=== PATIENT | male | born 2000 ===

== ENCOUNTER 2020-02-06 10:37 | Emergency (ER) | payer BC ==
[~2020-02-06] VITALS: Ht 177.8 cm; Wt 83.9 kg
--- NOTE | 2020-02-06 10:45 | NUR ---
Dr. Patricia at bedside for MSE
[2020-02-06] MEDS ORDERED: CEphaleXIN 500 MG CAPSULE ONE (10:58)
[2020-02-06] MEDS ORDERED: NEOMY/BACITRA/POLYMYXIN B OINT UD PACKET TP ONE ×2 (11:00→11:22)
[2020-02-06] MEDS ORDERED: CEphaleXIN 500 MG CAPSULE PO ONE (11:00)
[2020-02-06] MEDS ORDERED: LIDOCAINE HCL 2% 20 ML VIAL TP ONE (11:00)
--- NOTE | 2020-02-06 12:03 | NUR ---
Patient discharged to home in stable condition. Written and verbal after care instructions given. Patient verbalizes understanding of instructions. Stressed follow up or return to ER for worsening s/s. No active bleeding noted. Patient ambulated with steady gait. NAD noted
[2020-02-06 12:11] VITALS: BP 122/71
== END 2020-02-06 12:03 | disposition home or self-care (01) ==
LOC: ER 10:37
PROC: 0J9J0ZZ Drainage of Right Hand Subcutaneous Tissue and Fascia, Open Approach (ICD-10-PCS; principal; 2020-02-06)
DX: L03.011 Cellulitis of right finger (principal)
CPT/HCPCS: 73140; A4663; J3490

== ENCOUNTER 2020-02-08 10:25 | Emergency (ER) | payer BC ==
[~2020-02-08] VITALS: Ht 177.8 cm; Wt 83.9 kg
--- NOTE | 2020-02-08 11:33 | NUR ---
PT WAS EVALUATED BY DR CONNORS. PT WAS D/C'd TO HOME. D/C INSTRUCTIONS GIVEN TO THE PT BY DR CONNORS.
[2020-02-08 11:36] VITALS: BP 128/77
== END 2020-02-08 11:37 | disposition home or self-care (01) ==
LOC: ER 10:25
DX: L03.011 Cellulitis of right finger (principal)
CPT/HCPCS: A4663